=== PATIENT | female | born 1940 | race Caucasian/White ===

== ENCOUNTER 2018-07-22 21:23 | Emergency (ER) | payer MEDICARE, OTHER ==
[~2018-07-22] VITALS: Ht 162.6 cm; Wt 65.8 kg
--- NOTE | 2018-07-22 22:01 | ED General ---
General Stated Complaint: HAVING ISSUES WITH BLOOD THINNERS History of Present Illness Date Seen by Provider: Jul 22, 2018 Time Seen by Provider: 22:00 Initial Comments 78 YO F WITH HX OF MITRAL VALVE MECHANICAL VALVE P/W INR 8 AT HOME ON HOME CHECK. SHE DID HAVE A SALAD THIS WEEKEND BUT OTHERWISE NO DIETARY CHANGES OR COUMADIN DOSE CHANGES RECENTLY. SHE IS NOT SURE WHY THIS HAPPENED BUT IT HAS BEEN THIS HIGH IN THE PAST WELL. NO RECTAL BLEEDING NO MELENA DID HAVE SMALL BRUISE ON LEFT FOREARM WHEN SHE LOOKED IN THE ER. PATIENT HAS NO HEAD TRAUMA. SHE FEELS FINE OTHER THAN THE CHECK (USUALLY CHECKS IT ON SUNDAY) Allergies and Home Medications Allergies Coded Allergies: No Known Drug Allergies (Unverified , 07/22/18) Patient Home Medication List Home Medication List Reviewed: Yes Review of Systems Review of Systems Constitutional: no symptoms reported All Other Systems Reviewed Negative Unless Noted: Yes Past Ljjwndg-Riaesv-Vagjid Hx Past Med/Social Hx: Reviewed Nursing Past Med/Soc Hx Patient Social History Recent Foreign Travel: No Contact w/Someone Who Travel: No Physical Exam Vital Signs Capillary Refill : SEE NURSES NOTE FOR VITALS, BP MID 90'S PT IS SMALL WOMAN ASYMPTOMATIC Height, Weight, BMI Height: '" Weight: lbs. oz. kg; BMI Method: General Appearance: No Apparent Distress, WD/WN HEENT: PERRL/EOMI Neck: Normal Inspection, Non Tender Respiratory: Lungs Clear, Normal Breath Sounds Cardiovascular: Other (MECHANICAL HEART SOUND NOTED) Gastrointestinal: Non Tender Extremity: Normal Capillary Refill, Normal Range of Motion, Non Tender Neurologic/Psychiatric: Alert, Oriented x3, No Motor/Sensory Deficits Skin: Ecchymosis (NOTED ON THE LEFT FOREARM SMALL) Progress/Results/Core Measures Suspected Sepsis SIRS Temperature: Pulse: Respiratory Rate: Laboratory Tests 07/22/18 22:20: White Blood Count 6.1 Blood Pressure / Mean: Laboratory Tests 07/22/18 22:20: Creatinine 1.36H, INR Comment 7.5*H, Platelet Count 193, Total Bilirubin 0.3 Results/Orders Lab Results Laboratory Tests Test 07/22/18 22:20 Range/Units White Blood Count 6.1 4.3-11.0 10^3/uL Red Blood Count 2.97 L 4.35-5.85 10^6/uL Hemoglobin 11.2 L 11.5-16.0 G/DL Hematocrit 33 L 35-52 % Mean Corpuscular Volume 111 H 80-99 FL Mean Corpuscular Hemoglobin 38 H 25-34 PG Mean Corpuscular Hemoglobin Concent 34 32-36 G/DL Red Cell Distribution Width 13.8 10.0-14.5 % Platelet Count 193 130-400 10^3/uL Mean Platelet Volume 10.2 7.4-10.4 FL Neutrophils (%) (Auto) 38 L 42-75 % Lymphocytes (%) (Auto) 35 12-44 % Monocytes (%) (Auto) 12 0-12 % Eosinophils (%) (Auto) 13 H 0-10 % Basophils (%) (Auto) 1 0-10 % Neutrophils # (Auto) 1.0 L 1.8-7.8 X 10^3 Lymphocytes # (Auto) 2.3 1.0-4.0 X 10^3 Monocytes # (Auto) 2.1 H 0.0-1.0 X 10^3 Eosinophils # (Auto) 0.7 H 0.0-0.3 10^3/uL Basophils # (Auto) 0.8 H 0.0-0.1 10^3/uL Prothrombin Time 64.7 *H 12.2-14.7 SEC INR Comment 7.5 *H 0.8-1.4 Sodium Level 141 135-145 MMOL/L Potassium Level 3.7 3.6-5.0 MMOL/L Chloride Level 103 98-107 MMOL/L Carbon Dioxide Level 22 21-32 MMOL/L Anion Gap 16 H 5-14 MMOL/L Blood Urea Nitrogen 22 H 7-18 MG/DL Creatinine 1.36 H 0.60-1.30 MG/DL Estimat Glomerular Filtration Rate 38 BUN/Creatinine Ratio 16 Glucose Level 93 70-105 MG/DL Calcium Level 8.8 8.5-10.1 MG/DL Corrected Calcium 9.0 8.5-10.1 MG/DL Total Bilirubin 0.3 0.1-1.0 MG/DL Aspartate Amino Transf (AST/SGOT) 22 5-34 U/L Alanine Aminotransferase (ALT/SGPT) 14 0-55 U/L Alkaline Phosphatase 92 40-136 U/L Total Protein 7.6 6.4-8.2 GM/DL Albumin 3.7 3.2-4.5 GM/DL Smear Scan .1 My Orders Orders - THAO SAMS MD Protime With Inr (07/22/18 21:37) Cbc And Manual Diff (07/22/18 21:37) Comprehensive Metabolic Panel (07/22/18 21:37) Phytonadione Oral Solution (Mephyton Ora (07/22/18 23:30) Vital Signs/I&O Capillary Refill : Progress Note : Progress Note INR 7.5 KNOWN MITRAL VALVE NO SIGNS OF BLEEDING VITAMIN K ORAL ADVISED NO COUMADIN FOR 2 DAYS, CALL DOCTOR ON SUNDAY FOR FURTHER INSTRUCTIONS STRICT RETURN PREC FOR ANY SIGNS OF BLEEDING. WE GAVE LOW DOSE OF VIT K TO DECREASE RISK OF OVERCORRECTING DUE TO HER MECH VALVE, SHE AND I TALKED ABOUT THE DECISION MAKING SURROUNDING THIS AND SHE IS AGREEABLE. Departure Impression Primary Impression: Supratherapeutic INR Disposition: HOME, SELF-CARE Condition: Stable Departure-Patient Inst. Decision time for Depature: 23:33 Referrals: MCKINLEY COTTRELL DO (PCP/Family) Primary Care Physician Patient Instructions: Anti-Clotting Medicines: Warfarin (Coumadin) Add. Discharge Instructions: NO COUMADIN FOR 2 DAYS THEN CALL PMD FOR INSTRUCTIONS RETURN FOR ANY SIGNS OF BLEEDING THAO SAMS MD Jul 22, 2018 22:01
[2018-07-22 22:50] LABS: BASOPHILS % (AUTO) 1 % (0-10); EOSINOPHILS % (AUTO) 13 % (0-10); HEMATOCRIT 33 % (35-52); HEMOGLOBIN 11.2 G/DL (11.5-16.0); LYMPHOCYTES % (AUTO) 35 % (12-44); MEAN CORPUSCULAR HEMOGLOBIN 38 PG (25-34); MEAN CORPUSCULAR HGB CONC 34 G/DL (32-36); MEAN CORPUSCULAR VOLUME 111 FL (80-99); MEAN PLATELET VOLUME 10.2 FL (7.4-10.4); MONOCYTES % (AUTO) 12 % (0-12); NEUTROPHILS % (AUTO) 38 % (42-75); PLATELET COUNT 193 10^3/uL (130-400); RED CELL DISTRIBUTION WIDTH 13.8 % (10.0-14.5); WHITE BLOOD COUNT 6.1 10^3/uL (4.3-11.0)
[2018-07-22 22:51] LABS: BASOPHILS # (AUTO) 0.8 10^3/uL (0.0-0.1); EOSINOPHILS # (AUTO) 0.7 10^3/uL (0.0-0.3); LYMPHOCYTES # (AUTO) 2.3 X 10^3 (1.0-4.0); MONOCYTES # (AUTO) 2.1 X 10^3 (0.0-1.0)
[2018-07-22 23:08] LABS: INR 7.5 (0.8-1.4); PROTHROMBIN TIME PATIENT 64.7 SEC (12.2-14.7)
[2018-07-22 23:13] LABS: ALBUMIN 3.7 GM/DL (3.2-4.5); BILIRUBIN,TOTAL 0.3 MG/DL (0.1-1.0); CALCIUM 8.8 MG/DL (8.5-10.1); CREATININE SERUM 1.36 MG/DL (0.60-1.30); POTASSIUM 3.7 MMOL/L (3.6-5.0); TOTAL PROTEIN 7.6 GM/DL (6.4-8.2)
[2018-07-22] MEDS ORDERED: VITAMIN K 1 MG/ML ORAL SOLN 1 ML SYRINGE PO ONE (23:30)
[2018-07-22 23:40] VITALS: BP 121/84
[2018-07-22 23:48] LABS: BAND NEUTROPHILS 2 %; BASOPHILS % (MANUAL) 0 %; EOSINOPHILS % (MANUAL) 11 %; LYMPHOCYTES % (MANUAL) 49 %; MONOCYTES % (MANUAL) 12 %; NEUTROPHILS % (MANUAL) 26 %; RBC MORPH NORMAL
== END 2018-07-22 23:40 | disposition home or self-care (01) ==
LOC: EDUNIT# 21:23 → ER FS 21:24
DX: M79.81 Nontraumatic hematoma of soft tissue (principal); Z79.01 Long term (current) use of anticoagulants; Z98.890 Other specified postprocedural states; Z95.2 Presence of prosthetic heart valve
CPT/HCPCS: 36415; 80053; 85007; 85027; 85610; 99283

== ENCOUNTER 2019-03-13 12:57 | Emergency (ER) | payer MEDICARE, OTHER ==
[~2019-03-13] VITALS: Ht 162.5 cm; Wt 66.3 kg
--- NOTE | 2019-03-13 14:11 | ED Upper Extremity ---
General Chief Complaint: Upper Extremity Stated Complaint: FALL; RT SHOULDER INJ Nursing Triage Note: Patient c/o left shoulder and upper arm pain. States she was walking up to the house when she tripped and fell landing on her right shoulder. She reports that she is able to move her her forarm but if she tries to move her upper right arm or shoulder it is extremly painful. Nursing Sepsis Screen: No Definite Risk Source: patient Exam Limitations: no limitations History of Present Illness Date Seen by Provider: Mar 13, 2019 Time Seen by Provider: 13:10 Initial Comments The patient is a pleasant 79-year-old female presents for evaluation of right shoulder pain. She states that she was about to walk up some stairs in her house when she tripped and landed on the right shoulder. She has an abrasion to her forehead. She states that this injury took place yesterday. Since that time she's been having pain moving the right arm at the shoulder joint. She is also been having pain over her right clavicle. She denies loss of consciousness, neck pain, shortness breath, vision changes, or any other complaints. Location Injury Occurred: home Onset: yesterday Severity: moderate Pain/Injury Location: right shoulder Method of Injury: fell Modifying Factors: Improves With Movement (makes it worse) Allergies and Home Medications Allergies Coded Allergies: No Known Drug Allergies (Unverified , 07/22/18) Patient Home Medication List Home Medication List Reviewed: Yes Review of Systems Constitutional: no symptoms reported Respiratory: no symptoms reported Cardiovascular: no symptoms reported Gastrointestinal: no symptoms reported Genitourinary: no symptoms reported Musculoskeletal: joint pain (right shoulder) Skin: no symptoms reported Psychiatric/Neurological: No Symptoms Reported All Other Systems Reviewed Negative Unless Noted: Yes Past Hzywmar-Bdfpdt-Xiydal Hx Past Med/Social Hx: Reviewed Nursing Past Med/Soc Hx Patient Social History Alcohol Use: Denies Use Recreational Drug Use: No Smoking Status: Never a Smoker 2nd Hand Smoke Exposure: No Recent Foreign Travel: No Contact w/Someone Who Travel: No Recent Infectious Disease Expo: No Recent Hopitalizations: No Physical Abuse: No Sexual Abuse: No Mistreated: No Fear: No Seasonal Allergies Seasonal Allergies: No Past Medical History Surgeries: Yes Cardiac, Orthopedic Respiratory: No Cardiac: Yes (HEART VALVE REPLACEMENT) Atrial Fibrillation Neurological: No Genitourinary: No Gastrointestinal: No Musculoskeletal: No Endocrine: No HEENT: No Cancer: No Psychosocial: Yes Depression Integumentary: No Blood Disorders: No Physical Exam Vital Signs Vital Signs - First Documented 03/13/19 13:18 Temp 36.7 Pulse 76 Resp 18 B/P (MAP) 120/59 (79) Pulse Ox 97 O2 Delivery Room Air Capillary Refill : Less Than 3 Seconds Height, Weight, BMI Height: 5'4.00" Weight: 145lbs. oz. 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 The patient's been placed in a sling. Advise close follow-up with orthopedics and return to the emergency Department immediately for new or worsening symptoms. The patient expresses verbal understanding and agreement with the plan and is stable for discharge. Departure Impression Primary Impression: Right clavicle fracture Additional Impression: Closed head injury Disposition: 01 HOME, SELF-CARE Condition: Stable Departure-Patient Inst. Referrals: LAMONT GONZALEZ DO Patient Instructions: How to Use a Shoulder Sling, Minor Head Injury Add. Discharge Instructions: Follow-up with orthopedics in the next 1-2 days. Take the prescribed medicine as directed. Return to the emergency Department immediately for new or worsening symptoms. Scripts Hydrocodone Bit/Acetaminophen (Hydrocodone/Acetaminophen 5/325mg Tablet) 1 Tab Tab 1-2 EACH PO Q6H PRN for PAIN-MODERATE MDD 10 for 5 Days, #15 TAB 0 Refills Prov: IZABELLA ESCOBAR DO 03/13/19 IZABELLA ESCOBAR DO Mar 13, 2019 14:11 POS
--- NOTE | 2019-03-13 14:24 | Diagnostic Imaging Report ---
INDICATION: Fall with right shoulder pain. Time of exam 1:39 PM 3 views of the right shoulder were obtained. There is a fracture of the distal clavicle. The articular surface of the distal clavicle maintains normal alignment with the acromion. The acromiohumeral space is normal. Glenohumeral alignment is normal. Proximal humerus is intact. The scapula appears to be intact. IMPRESSION: Distal clavicle fracture. No AC separation is identified. The study is otherwise unremarkable. Dictated by: Dictated on workstation # [id number]
--- NOTE | 2019-03-13 14:43 | Diagnostic Imaging Report ---
CLINICAL INDICATION: Patient is status post fall with bruising to right eye. EXAM: Axial CT scan of brain performed without IV contrast. COMPARISON: None. FINDINGS: There is no evidence of acute cerebral infarct, intracranial hemorrhage, or gross mass effect. There are small chronic cerebral infarcts involving the lateral right frontal lobe and high left parietal lobe. There are multiple focal areas of high T2 signal white matter changes involving both cerebral hemispheres and both cerebellar hemispheres representing chronic ischemic changes. The brain parenchymal volume appears appropriate for patient's age. There is no significant midline shift or herniation. There is no evidence of hydrocephalus. The basal cisterns are unremarkable. The skull, extracranial soft tissue, and orbits are unremarkable. The paranasal sinuses are unremarkable. There is small amount of consolidation of fluid in the left mastoid air cells. IMPRESSION: 1: There is no evidence of acute intracranial hemorrhage or skull fracture. The orbits and globes are intact. 2: There are small chronic cerebral infarct involving the right frontal lobe and high left parietal lobe and small areas of chronic ischemic changes involving both cerebral hemispheres and bilateral cerebellar hemispheres. 3: Small amount of fluid/consolidation within the left mastoid air cells. Dictated by: Dictated on workstation # [id number]
--- NOTE | 2019-03-13 15:23 | Diagnostic Imaging Report ---
EXAMINATION: Right clavicle at 01:36 p.m. INDICATION: Fell, shoulder pain. FINDINGS: Two views were obtained. As noted on the right shoulder exam performed in conjunction with this study, there has been avulsion of the lateral head of the clavicle. No other fracture or acute bony abnormality is identified. The soft tissues are unremarkable. IMPRESSION: The avulsion fracture of the lateral head of the clavicle seen previously is again evident. There is no acute bony abnormality noted otherwise. Dictated by: Dictated on workstation # [id number]
[2019-03-13] MEDS ORDERED: ACHD5005 PO (15:36)
[2019-03-13 15:47] VITALS: BP 134/63
== END 2019-03-13 15:47 | disposition home or self-care (01) ==
LOC: EDUNIT# 12:57 → ER FS 12:58
DX: S42.031A Displaced fracture of lateral end of right clavicle, initial encounter for closed fracture (principal); S09.90XA Unspecified injury of head, initial encounter; I48.91 Unspecified atrial fibrillation; F32.9 Major depressive disorder, single episode, unspecified; Z95.4 Presence of other heart-valve replacement; W01.0XXA Fall on same level from slipping, tripping and stumbling without subsequent striking against object, initial encounter; Y92.009 Unspecified place in unspecified non-institutional (private) residence as the place of occurrence of the external cause
CPT/HCPCS: 70450; 73000; 73030

== ENCOUNTER → 2020-10-25 | Outpatient (CLI) | payer MEDICARE, OTHER ==
[~2020-10-25] MED LIST: ACHD5005 PO
--- NOTE | 2020-10-25 17:35 | Diagnostic Imaging Report ---
EXAMINATION: Right foot radiographs, 3 views. COMPARISON: None. HISTORY: 80-year-old female, stepped on glass 2 days ago. Evaluation for foreign body. Right foot pain. FINDINGS: The bones appear potentially demineralized. There are vascular related calcifications. There is normal variant congenital fusion of the fifth digit middle and distal phalanges. There is a linear foreign body volarly located at the level of the metatarsophalangeal joints measuring 3 mm in size within the subcutaneous tissues best seen on the lateral view. This is projecting between the second and third metatarsal heads on the oblique view. There is no identified acute fracture. There is a small calcaneal heel spur. There is no identified tibiotalar joint effusion. IMPRESSION: 1. 3 mm linear foreign body within the volar subcutaneous tissues projecting between the level of the second and third metatarsal heads. 2. No acute osseous abnormality. Dictated by: Dictated on workstation # [id number]
== END ==
LOC: RAD FS 13:11
PROVIDERS: ATTEND Nurse Practitioner Family
DX: S90.851A Superficial foreign body, right foot, initial encounter (principal); L02.611 Cutaneous abscess of right foot; X58.XXXA Exposure to other specified factors, initial encounter
CPT/HCPCS: 73630

== ENCOUNTER → 2021-08-19 | Outpatient (CLI) | payer MEDICARE, OTHER ==
--- NOTE | 2021-08-19 15:40 | Diagnostic Imaging Report ---
INDICATION: Repeated falls with pain to left thumb. FINDINGS: 3 views. There is a transverse fracture along the proximal shaft of the 1st metacarpal. Alignment is good with minimal foreshortening. There are no dislocations. 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 IMPRESSION: Fracture of the proximal shaft of the 1st metacarpal with minimal displacement. Dictated by: Dictated on workstation # [id number]
== END ==
LOC: RAD FS 12:35
PROVIDERS: ATTEND Nurse Practitioner Family
DX: S62.242A Displaced fracture of shaft of first metacarpal bone, left hand, initial encounter for closed fracture (principal); R29.6 Repeated falls
CPT/HCPCS: 73130

== ENCOUNTER → 2021-08-26 | Outpatient (CLI) | payer MEDICARE ==
--- NOTE | 2021-08-26 10:55 | Diagnostic Imaging Report ---
INDICATION: Follow-up of left thumb fracture. Comparison with 08/19/2021. FINDINGS: The mildly angulated oblique fracture in the proximal shaft of the 1st metacarpal remains unchanged in alignment. No callus formation has developed. Thumb spica fiberglass cast present. IMPRESSION: Mildly angulated fracture of the 1st metacarpal. Dictated by: Dictated on workstation # [id number]
== END ==
LOC: RAD FS 10:39
PROVIDERS: ATTEND Nurse Practitioner
DX: S62.512A Displaced fracture of proximal phalanx of left thumb, initial encounter for closed fracture (principal); S62.202A Unspecified fracture of first metacarpal bone, left hand, initial encounter for closed fracture
CPT/HCPCS: 73140

== ENCOUNTER → 2021-09-12 | Outpatient (CLI) | payer MEDICARE ==
--- NOTE | 2021-09-12 12:34 | Diagnostic Imaging Report ---
INDICATION: Thumb fracture, follow-up. TIME OF EXAM: 10:54 a.m. COMPARISON: Correlation is made with prior radiographs from 08/26/2021. FINDINGS: Overlying cast obscures bone detail. The fracture involving the mid shaft of the first metacarpal is again noted. There does appear to be some callus formation present consistent with some healing, although the fracture line does remain clearly visible. Overall alignment is anatomic. Remaining metacarpals and phalanges are intact. There is generalized demineralization. IMPRESSION: Healing mid shaft fracture of the first metacarpal. Fracture line remains clearly visible, and overall alignment is anatomic. Dictated by: Dictated on workstation # [id number]
== END ==
LOC: RAD FS 10:40
PROVIDERS: ATTEND Nurse Practitioner
DX: S62.512D Displaced fracture of proximal phalanx of left thumb, subsequent encounter for fracture with routine healing (principal); X58.XXXD Exposure to other specified factors, subsequent encounter
CPT/HCPCS: 73140

== ENCOUNTER → 2021-09-27 | Outpatient (CLI) | payer MEDICARE, OTHER ==
--- NOTE | 2021-09-27 12:59 | Diagnostic Imaging Report ---
CLINICAL HISTORY: Fracture involving the 1st left metacarpal. Followup. COMPARISON: 09/12/2021. TECHNIQUE: Four views of the left fingers. FINDINGS: A subacute fracture is seen involving the midportion of the left 1st metacarpal. There is sclerosis along the fracture margins. Alignment is stable. No new fractures are seen in the left hand. Osteopenia is noted. The cast overlying the left hand has been removed. IMPRESSION: 1. Interval healing of the fracture involving the midportion of the left 1st metacarpal. Recommend continued followup. 2. Generalized osteopenia. Dictated by: Dictated on workstation # [id number]
== END ==
LOC: RAD FS 09:34
PROVIDERS: ATTEND Nurse Practitioner
DX: S62.252D Displaced fracture of neck of first metacarpal bone, left hand, subsequent encounter for fracture with routine healing (principal); M85.88 Other specified disorders of bone density and structure, other site; X58.XXXD Exposure to other specified factors, subsequent encounter
CPT/HCPCS: 73140

== ENCOUNTER 2022-03-17 12:41 | Emergency (ER) | payer MEDICARE, OTHER ==
[~2022-03-17] VITALS: Ht 162 cm; Wt 54.0 kg
[2022-03-17 13:02] VITALS: BP 150/69
--- NOTE | 2022-03-17 13:30 | ED Back Pain ---
General Chief Complaint: Back Problems Stated Complaint: INTRACTABLE BACK PAIN Nursing Triage Note: PT ARRIVES TO ER VIA W/C WITH FAMILY. REPORTS BEEN HAVING LOWER BACK PAIN FOR SEVERAL WEEKS, DENIES INJURY. PT WAS SEEN AT [place] 02/16, CT OF ABD/BACK PERFORMED, WAS TOLD SHE HAD A COMPRESSION FX. PT WAS GIVEN PAIN MEDS AND MUSCLE RELAXERS. HAS APPT SCHEDULED WITH PAIN MANAGEMENT AT THE END OF FEB. FAMILY REPORTS FAILURE TO THRIVE, PT NOT EATING OR DRINKING DUE TO PAIN. Source of Information: Patient, Family Exam Limitations: No Limitations History of Present Illness Date Seen by Provider: Mar 17, 2022 Time Seen by Provider: 13:20 Initial Comments Patient is an 82-year-old female who presents to the emergency department with approximately 1 month of severe lower back pain. Patient was seen at [facility] where CT of the abdomen/pelvis and lumbar spines acutely negative but there was a chronic appearing compression deformity noted to a lumbar vertebra. Patient was prescribed analgesia at that time. She has since followed up multiple times with her PCP and is currently taking hydrocodone and Robaxin for the pain. She has an appointment later this month to establish care with pain management. She has had multiple systemic steroid injections at PCP which reportedly helped for a very short period of time but then the symptoms returned. Patient states she has minimal pain while lying still but anytime she has to move the pain markedly increases. Patient is accompanied by her and her daughter. Daughter states that patient has not been eating or drinking nearly as much and they are having increasing difficulty getting her around. They are currently using a combination of a gait belt and rolling walker to assist with ambulation. Daughter thinks patient needs some level of short-term placement for PT/OT. They have not discussed this wish with the patient's PCP. Patient has had constipation for the last several days. No fevers. Patient is able to ambulate although it is quite painful. Allergies and Home Medications Allergies Coded Allergies: No Known Drug Allergies (Unverified , 07/22/18) Patient Home Medication List Home Medication List Reviewed: Yes Hydrocodone Bit/Acetaminophen (Lortab 5 Mg Tablet) 1 Tab Tab, 1-2 EACH PO Q6H PRN for PAIN-MODERATE Prescribed by: IZABELLA ESCOBAR on 03/13/19 6204 Review of Systems Constitutional: no symptoms reported EENTM: no symptoms reported Respiratory: no symptoms reported Cardiovascular: no symptoms reported Gastrointestinal: see HPI, constipation, loss of appetite Genitourinary: no symptoms reported Musculoskeletal: back pain Past Hdihvst-Ckstjz-Doqqek Hx Patient Social History Tobacco Use?: No Use of E-Cig and/or Vaping dev: No Substance use?: No Alcohol Use?: No Pt feels they are or have been: No Immunizations Up To Date First/Initial COVID19 Vaccinat: RECEIVED, UNK WHEN Second COVID19 Vaccination Jose L: RECEIVED, UNK WHEN COVID19 Vaccine Foster Care Therapist: UNK Seasonal Allergies Seasonal Allergies: No Past Medical History Surgeries: Yes Cardiac, Orthopedic Respiratory: No Cardiac: Yes (HEART VALVE REPLACEMENT) Atrial Fibrillation Neurological: No Genitourinary: No Gastrointestinal: No Musculoskeletal: No Endocrine: No HEENT: No Cancer: No Psychosocial: Yes Depression Integumentary: No Blood Disorders: No Physical Exam Vital Signs Vital Signs - First Documented 03/17/22 13:02 Temp 36.7 Pulse 53 Resp 18 B/P (MAP) 150/69 (96) Pulse Ox 95 O2 Delivery Room Air Capillary Refill : Height, Weight, BMI Height: 5'4.00" Weight: 145lbs. oz. [id number]; 20.00 BMI Method:Stated General Appearance: No Apparent Distress, WD/WN HEENT: PERRL/EOMI, TMs Normal, Normal ENT Inspection, Pharynx Normal Neck: Normal Inspection, Non Tender Respiratory: Chest Non Tender, Lungs Clear, Normal Breath Sounds, No Accessory Muscle Use, No Respiratory Distress Gastrointestinal: Non Tender, Soft Back: Normal Inspection, No Vertebral Tenderness Neurologic/Psychiatric: Alert, Oriented x3, No Motor/Sensory Deficits, Normal Mood/Affect Skin: Normal Color, Warm/Dry Progress/Results/Core Measures Results/Orders Lab Results Laboratory Tests Test 03/17/22 14:04 03/17/22 14:20 Range/Units White Blood Count 6.0 4.3-11.0 10^3/uL Red Blood Count 3.36 L 3.80-5.11 10^6/uL Hemoglobin 12.8 11.5-16.0 g/dL Hematocrit 38 35-52 % Mean Corpuscular Volume 112 H 80-99 fL Mean Corpuscular Hemoglobin 38 H 25-34 pg Mean Corpuscular Hemoglobin Concent 34 32-36 g/dL Red Cell Distribution Width 13.2 10.0-14.5 % Platelet Count 211 130-400 10^3/uL Mean Platelet Volume 10.1 9.0-12.2 fL Immature Granulocyte % (Auto) 1 % Neutrophils (%) (Auto) 69 42-75 % Lymphocytes (%) (Auto) 18 12-44 % Monocytes (%) (Auto) 11 0-12 % Eosinophils (%) (Auto) 1 0-10 % Basophils (%) (Auto) 0 0-10 % Neutrophils # (Auto) 4.1 1.8-7.8 10^3/uL Lymphocytes # (Auto) 1.1 1.0-4.0 10^3/uL Monocytes # (Auto) 0.7 0.0-1.0 10^3/uL Eosinophils # (Auto) 0.0 0.0-0.3 10^3/uL Basophils # (Auto) 0.0 0.0-0.1 10^3/uL Immature Granulocyte # (Auto) 0.1 0.0-0.1 10^3/uL Sodium Level 140 135-145 MMOL/L Potassium Level 3.6 3.6-5.0 MMOL/L Chloride Level 101 98-107 MMOL/L Carbon Dioxide Level 25 21-32 MMOL/L Anion Gap 14 5-14 MMOL/L Blood Urea Nitrogen 10 7-18 MG/DL Creatinine 0.93 0.60-1.30 MG/DL Estimat Glomerular Filtration Rate 61 BUN/Creatinine Ratio 11 Glucose Level 101 70-105 MG/DL Calcium Level 9.6 8.5-10.1 MG/DL Corrected Calcium 10.0 8.5-10.1 MG/DL Total Bilirubin 0.6 0.1-1.0 MG/DL Aspartate Amino Transf (AST/SGOT) 21 5-34 U/L Alanine Aminotransferase (ALT/SGPT) 13 0-55 U/L Alkaline Phosphatase 77 40-136 U/L Total Protein 8.1 6.4-8.2 GM/DL Albumin 3.5 3.2-4.5 GM/DL Urine Color YELLOW Urine Clarity CLEAR Urine pH 5.5 5-9 Urine Specific Byers >=1.030 1.016-1.022 Urine Protein 1+ H NEGATIVE Urine Glucose (UA) NEGATIVE NEGATIVE Urine Ketones 1+ H NEGATIVE Urine Nitrite POSITIVE H NEGATIVE Urine Bilirubin NEGATIVE NEGATIVE Urine Urobilinogen 1.0 < = 1.0 MG/DL Urine Leukocyte Esterase NEGATIVE NEGATIVE Urine RBC (Auto) TRACE-I H NEGATIVE Urine RBC 0-2 /HPF Urine WBC 2-5 /HPF Urine Crystals NONE /LPF Urine Bacteria LARGE H /HPF Urine Casts NONE /LPF Urine Mucus NEGATIVE /LPF Urine Culture Indicated YES My Orders Orders - DOUGLAS ANN ARRANGER ASSEMBLER Cbc With Automated Diff (03/17/22 13:28) Comprehensive Metabolic Panel (03/17/22 13:28) Iv/Invasive Line Insertion .IV INSERT (03/17/22 13:28) Ua Culture If Indicated (03/17/22 13:28) Urine Culture (03/17/22 14:20) Ns Iv 500 Ml (Sodium Chloride 0.9%) (03/17/22 14:45) Vital Signs/I&O 03/17/22 13:02 Temp 36.7 Pulse 53 Resp 18 B/P (MAP) 150/69 (96) Pulse Ox 95 O2 Delivery Room Air 03/18/22 00:00 Intake Total 500 ml Balance 500 ml Blood Pressure Mean: 96 Progress Progress Note : Progress Note Patient is nontoxic and well-hydrated on exam. She is awake alert and oriented and answers all questions appropriately. She does endorse severe lumbar pain with any movement. Has full range of motion and sensation in her bilateral lower extremities. Denies any saddle anesthesia. No bowel/bladder incontinence. No significant midline lumbar tenderness to palpation noted on exam. Patient has already had imaging in the recent past with no new injury or trauma in the interim. Daughter does have the printed reads of the CT is done on February 16. Again they reveal nothing acute but do show possible chronic lumbar compression fracture. Patient does not appear markedly dehydrated clinically. Laboratory evaluation was obtained that is grossly normal and reassuring. There are no metabolic derangements consistent with significant dehydration. BUN is mildly elevated. Patient was given a 500 mL bolus of normal saline. She tolerated this well. I discussed with family that there is no acute medical indication for patient being admitted and that I would happily speak with the hospitalist to see what other options may be available. The hospital stated that patient is not a candidate for admission at this time as she does not meet medical admission criteria. Patient's insurance, 3 night stay would be required before she would be eligible for placement and this is not something that can happen at this time as there is no medical indication for this length of admission. I then spoke with the admission coordinator at the [facility] who states they do not have any bed availability at this time and there is a 3 person wait list. I then called Dr. Hathaway to discuss the potential for inpatient rehab admission. She stated patient would not be able to be approved today or in the next few days due to her insurance. I discussed all this with family and daughter states they just desire to go home. I encouraged them to closely follow-up with PCP and to discuss their desire for rehab placement and that they may be able to set something up in the near future. I encouraged them to return to the ER for any worsening symptomology. Patient and family verbalized understanding. Departure Impression Primary Impression: Lumbar pain Disposition: 01 HOME, SELF-CARE Condition: Stable Departure-Patient Inst. Decision time for Depature: 15:40 Referrals: MCKINLEY COTTRELL DO (PCP/Family) Primary Care Physician Patient Instructions: Low Back Pain (DC) DOUGLAS ANN APRN Mar 17, 2022 13:30
[2022-03-17 14:09] LABS: BASOPHILS % (AUTO) 0 % (0-10); EOSINOPHILS % (AUTO) 1 % (0-10); HEMATOCRIT 38 % (35-52); HEMOGLOBIN 12.8 g/dL (11.5-16.0); LYMPHOCYTES # (AUTO) 1.1 10^3/uL (1.0-4.0); LYMPHOCYTES % (AUTO) 18 % (12-44); MEAN CORPUSCULAR HEMOGLOBIN 38 pg (25-34); MEAN CORPUSCULAR HGB CONC 34 g/dL (32-36); MEAN CORPUSCULAR VOLUME 112 fL (80-99); MEAN PLATELET VOLUME 10.1 fL (9.0-12.2); MONOCYTES # (AUTO) 0.7 10^3/uL (0.0-1.0); MONOCYTES % (AUTO) 11 % (0-12); NEUTROPHILS # (AUTO) 4.1 10^3/uL (1.8-7.8); NEUTROPHILS % (AUTO) 69 % (42-75); PLATELET COUNT 211 10^3/uL (130-400)
[2022-03-17 14:24] LABS: ALBUMIN 3.5 GM/DL (3.2-4.5)
[2022-03-17 14:25] LABS: POTASSIUM 3.6 MMOL/L (3.6-5.0)
[2022-03-17 14:26] LABS: CALCIUM 9.6 MG/DL (8.5-10.1)
[2022-03-17 14:27] LABS: TOTAL PROTEIN 8.1 GM/DL (6.4-8.2)
[2022-03-17 14:27] LABS: BILIRUBIN,URINE NEGATIVE (NEGATIVE); CLARITY,URINE CLEAR; COLOR,URINE YELLOW; GLUCOSE, URINE (UA) NEGATIVE (NEGATIVE); KETONES,URINE 1+ (NEGATIVE); LEUKOCYTE ESTERASE ,URINE NEGATIVE (NEGATIVE); NITRITE,URINE POSITIVE (NEGATIVE); PH,URINE 5.5 (5-9); PROTEIN,URINE 1+ (NEGATIVE)
[2022-03-17 14:29] LABS: BILIRUBIN,TOTAL 0.6 MG/DL (0.1-1.0)
[2022-03-17 14:31] LABS: CREATININE SERUM 0.93 MG/DL (0.60-1.30)
[2022-03-17 14:37] LABS: BACTERIA,URINE LARGE /HPF; RBC,URINE 0-2 /HPF
[2022-03-17] MEDS ORDERED: NS IV 500 ML 500 ML IV SCH (14:45)
== END 2022-03-17 15:55 | disposition home or self-care (01) ==
LOC: EDUNIT# 12:41 → ER 12:42
DX: M54.50 Low back pain, unspecified (principal); R94.4 Abnormal results of kidney function studies
CPT/HCPCS: 36415; 80053; 81000; 85025; 87077; 87088; 87186; 99282